=== PATIENT | male | born 1985 | race Native Hawaiian/Other Pacific Islander ===

== ENCOUNTER 2022-03-03 16:59 | Emergency (ER) | payer OTHER ==
[~2022-03-03] VITALS: Ht 175.3 cm; Wt 61.2 kg
[2022-03-03 17:14] VITALS: BP 143/81; TEMP 98.7
== END 2022-03-03 18:06 | disposition home or self-care (01) ==
LOC: ED 16:59
DX: K04.7 Periapical abscess without sinus (principal); R22.0 Localized swelling, mass and lump, head
CPT/HCPCS: 99281

== ENCOUNTER 2022-03-19 09:14 | Emergency (ER) | payer OTHER ==
[~2022-03-19] VITALS: Ht 175.3 cm; Wt 61.2 kg
[2022-03-19 09:17] VITALS: TEMP 97.8
[2022-03-19 10:00] LABS: PLATELET COUNT 550 K/uL (142-355)
[2022-03-19 10:11] LABS: PARTIAL THROMBOPLASTIN TIME 25.7 SECONDS (24.5-33.6)
[2022-03-19 11:05] VITALS: BP 112/56
== END 2022-03-19 11:05 | disposition home or self-care (01) ==
LOC: ED 09:14
PROVIDERS: Family Medicine
DX: M47.892 Other spondylosis, cervical region (principal); R20.2 Paresthesia of skin
CPT/HCPCS: 36415; 80053; 80307; 80320; 81002; 85027; 85610; 85730; 99283